=== PATIENT | male | born 1935 | race Caucasian/White ===

== ENCOUNTER 2022-08-05 16:34 | Inpatient (IN) | payer MEDICARE, OTHER ==
[~2022-08-05] VITALS: Ht 170.2 cm; Wt 68.5 kg
[2022-08-05 18:46] LABS: CHLORIDE 107 mEq/L (98-107)
[2022-08-05 18:47] LABS: HEMATOCRIT. 32.6 % (42.0-52.0); HEMOGLOBIN. 10.7 g/dL (14.0-18.0); MEAN CORPUSCULAR HEMOGLOBIN 26.1 pg (28.0-32.0); MEAN CORPUSCULAR VOLUME 79.7 fL (80.0-94.0); MEAN PLATELET VOLUME 7.6 fl (7.4-10.4); PLATELET 237 x1000/uL (130-400); RED BLOOD CELL COUNT 4.09 mill/uL (4.7-6.1); RED CELL DISTRIBUTION WIDTH 18.3 % (11.6-14.6)
[2022-08-05] MEDS ORDERED: MAGNESIUM/ALUMINUM HYDROXIDE/SIMETHICONE 30ML UDC PO PRN (21:00)
[2022-08-05] MEDS: FAMOTIDINE 20MG TABLET PO SCH (21:00)
[2022-08-05] MEDS ORDERED: ACETAMINOPHEN 325MG TABLET PO PRN ×2 (21:00)
[2022-08-05] MEDS ORDERED: NITROGLYCERIN 0.4MG TABLET SL SL PRN (21:00)
[2022-08-05] MEDS ORDERED: ONDANSETRON HCL 4MG/2ML INJ IV PRN (21:00)
[2022-08-05] MEDS ORDERED: DOCUSATE SODIUM 100MG CAPSULE PO PRN (21:00)
[2022-08-05] MEDS ORDERED: ZOLPIDEM TARTRATE 5MG TABLET PO PRN (21:00)
[2022-08-05] MEDS ORDERED: CLONIDINE 0.1MG TABLET PO PRN (21:00)
[2022-08-05] MEDS ORDERED: KETOROLAC 15MG/ML VIAL IV PRN (21:00)
[2022-08-05] MEDS ORDERED: IPRATROPIUM/ALBUTEROL 0.5-3(2.5)MG/3ML NEB NEB PRN (21:00)
[2022-08-05 21:16] LABS: PLATELET ESTIMATE NORMAL
[2022-08-05 22:25] LABS: CREATINE KINASE 163 IU/L (39-308); CREATINE KINASE MB FRACTION < 1.0 ng/mL (0.5-3.6)
[2022-08-05 22:32] LABS: T4 FREE 1.47 ng/dL (0.76-1.46)
[2022-08-05 22:49] LABS: FOLIC ACID (FOLATE) SERUM 13.5 ng/mL (>5.38)
[2022-08-06 03:17] LABS: CLARITY URINE CLEAR (CLEAR); COLOR URINE YELLOW (YELLOW); KETONES URINE 1+ (NEGATIVE); LEUKOCYTE ESTERASE URINE NEGATIVE (NEGATIVE); NITRITE URINE NEGATIVE (NEGATIVE); OCCULT BLOOD URINE NEGATIVE (NEGATIVE); PH URINE 5.5 (4.5-8.0); PROTEIN URINE 1+ (NEGATIVE); SPECIFIC GRAVITY URINE 1.018 (1.005-1.030); UROBILINOGEN URINE 0.2 E.U./dL (0.2-1.0)
[2022-08-06 03:42] LABS: *AMPHETAMINES SCREEN URINE NEGATIVE (NEGATIVE); *BARBITURATES SCREEN URINE NEGATIVE (NEGATIVE); *BENZODIAZEPINES SCREEN URINE NEGATIVE (NEGATIVE); *COCAINE SCREEN URINE NEGATIVE (NEGATIVE); CANNABINOID URINE SCREEN NEGATIVE (NEGATIVE); METHADONE URINE SCREEN NEGATIVE (NEGATIVE); OPIATES URINE SCREEN NEGATIVE (NEGATIVE); PHENCYCLIDINE URINE SCREEN NEGATIVE (NEGATIVE)
[2022-08-06 06:12] LABS: HEMOGLOBIN. 10.4 g/dL (14.0-18.0); MEAN CORPUSCULAR HEMOGLOBIN 26.1 pg (28.0-32.0); MEAN CORPUSCULAR VOLUME 80.5 fL (80.0-94.0); MEAN PLATELET VOLUME 7.9 fl (7.4-10.4); PLATELET 227 x1000/uL (130-400); RED BLOOD CELL COUNT 3.97 mill/uL (4.7-6.1); RED CELL DISTRIBUTION WIDTH 17.8 % (11.6-14.6)
[2022-08-06 06:23] LABS: CHLORIDE 109 mEq/L (98-107)
[2022-08-06 06:30] LABS: PHOSPHORUS 3.7 mg/dL (2.5-4.9)
[2022-08-06 06:33] LABS: CREATINE KINASE 181 IU/L (39-308); CREATINE KINASE MB FRACTION < 1.0 ng/mL (0.5-3.6)
[2022-08-06 09:14] LABS: PLATELET ESTIMATE NORMAL
[2022-08-06] MEDS: ENOXAPARIN 40MG/0.4ML SYR SUBCUT SCH (09:14)
[2022-08-06] MEDS: FAMOTIDINE 20MG TABLET PO SCH (09:14)
[2022-08-06] MEDS: LOSARTAN POTASSIUM 50 MG TABLET PO SCH (09:14)
[2022-08-06] MEDS: THROAT LOZENGES-BENZOCAINE/MENTH/CETYLPYRD CL LOZENGES MM PRN ×2 (10:15→22:32)
[2022-08-06] MEDS ORDERED: KETOROLAC 15MG/ML VIAL IV PRN (10:45)
[2022-08-06 20:00] VITALS: BP 117/57
[2022-08-06 21:10] VITALS: BP 139/81
[2022-08-06] MEDS: GUAIFENESIN 200MG/10ML SUGAR FREE UDC PO PRN (22:32)
[2022-08-07] VITALS: BP 105/51
[2022-08-07 04:00] VITALS: BP 148/63
[2022-08-07 08:00] VITALS: BP 107/49
[2022-08-07] MEDS: LOSARTAN POTASSIUM 50 MG TABLET PO SCH (08:44)
[2022-08-07] MEDS: FAMOTIDINE 20MG TABLET PO SCH (08:52)
[2022-08-07] MEDS: ENOXAPARIN 40MG/0.4ML SYR SUBCUT SCH (08:52)
[2022-08-07 12:00] VITALS: BP 99/43
[2022-08-07 16:00] VITALS: BP 94/41
[2022-08-07 20:00] VITALS: BP 97/40
[2022-08-07] MEDS: THROAT LOZENGES-BENZOCAINE/MENTH/CETYLPYRD CL LOZENGES MM PRN (20:42)
[2022-08-07] MEDS: GUAIFENESIN 200MG/10ML SUGAR FREE UDC PO PRN (20:42)
[2022-08-08] VITALS: BP 105/47
[2022-08-08 04:00] VITALS: BP 98/44
[2022-08-08 08:00] VITALS: BP 126/61
[2022-08-08] MEDS: LOSARTAN POTASSIUM 50 MG TABLET PO SCH (08:47)
[2022-08-08] MEDS: FAMOTIDINE 20MG TABLET PO SCH (08:47)
[2022-08-08] MEDS: ENOXAPARIN 40MG/0.4ML SYR SUBCUT SCH (08:47)
[2022-08-08] MEDS: GUAIFENESIN 200MG/10ML SUGAR FREE UDC PO PRN (10:23)
[2022-08-08] MEDS: THROAT LOZENGES-BENZOCAINE/MENTH/CETYLPYRD CL LOZENGES MM PRN ×2 (10:24→21:09)
[2022-08-08 12:00] VITALS: BP 102/44
[2022-08-08 16:00] VITALS: BP 123/51
[2022-08-08 20:00] VITALS: BP 109/50
[2022-08-09] VITALS: BP 111/43
[2022-08-09 04:00] VITALS: BP 123/51
[2022-08-09 08:00] VITALS: BP 121/47
[2022-08-09] MEDS: FAMOTIDINE 20MG TABLET PO SCH (08:56)
[2022-08-09] MEDS: LOSARTAN POTASSIUM 50 MG TABLET PO SCH (08:56)
[2022-08-09] MEDS: ENOXAPARIN 40MG/0.4ML SYR SUBCUT SCH (08:57)
[2022-08-09] MEDS: THROAT LOZENGES-BENZOCAINE/MENTH/CETYLPYRD CL LOZENGES MM PRN (09:00)
[2022-08-09 12:00] VITALS: BP 133/56
[2022-08-09 14:08] VITALS: BP 133/56
== END 2022-08-09 16:40 | disposition home health service (06) | DRG 177 ==
LOC: ER 16:38 → MICUSO 20:57 → SUPCPDRO 21:20 → EDBEDREQSVC 08-06 08:09 → 7EST 08-06 22:21
PROVIDERS: ADMIT Internal Medicine; ATTEND Internal Medicine
DX: U07.1 COVID-19 (principal); E43 Unspecified severe protein-calorie malnutrition; E11.65 Type 2 diabetes mellitus with hyperglycemia; E78.5 Hyperlipidemia, unspecified; E78.00 Pure hypercholesterolemia, unspecified; I10 Essential (primary) hypertension; M19.90 Unspecified osteoarthritis, unspecified site; D50.9 Iron deficiency anemia, unspecified; R74.01 Elevation of levels of liver transaminase levels; R13.10 Dysphagia, unspecified; D72.829 Elevated white blood cell count, unspecified; Z88.0 Allergy status to penicillin; Z88.8 Allergy status to other drugs, medicaments and biological substances; Z68.23 Body mass index [BMI] 23.0-23.9, adult; Z78.9 Other specified health status; Z85.820 Personal history of malignant melanoma of skin; M48.00 Spinal stenosis, site unspecified
CPT/HCPCS: 36415; 71045; 72170; 80053; 80061; 80305; 81003; 82550; 82553; 82607; 82746; 83036; 83540; 83550; 83605; 83735; 83880; 84100; 84145; 84439; 84443; 84484; 85025; 87070; 87426; 87430; 87804; 93005; 93970; 97162; 97166; 99291; J1650